=== PATIENT | female | born 1995 | race Two or more races ===

== ENCOUNTER 2019-07-07 11:10 | Outpatient (CLI) | payer OTHER ==
[~2019-07-07 11:10] MED LIST: ELOCON45 G1 TP; FLUCONAZOLE150 MG PO
== END 2019-07-07 11:19 | disposition home or self-care (01) ==
LOC: RAD 11:10
DX: E03.0 Congenital hypothyroidism with diffuse goiter (principal); Z13.6 Encounter for screening for cardiovascular disorders

== ENCOUNTER 2022-05-25 06:45 | Outpatient (CLI) | payer OTHER | END 2022-05-25 06:56 | disposition home or self-care (01) | LOC: SONOGRAMA 06:45 | PROVIDERS: ATTEND Surgery | DX: K76.0 Fatty (change of) liver, not elsewhere classified (principal) ==

== ENCOUNTER 2022-05-25 15:11 | Outpatient (CLI) | payer OTHER | END 2022-05-25 15:13 | disposition home or self-care (01) | LOC: LAB 15:11 | PROVIDERS: ATTEND Surgery | DX: R09.02 Hypoxemia (principal); B96.81 Helicobacter pylori [H. pylori] as the cause of diseases classified elsewhere ==